=== PATIENT | male | born 1950 | race Caucasian/White ===

== ENCOUNTER → 2017-06-24 | Outpatient (CLI) | payer MEDICARE, OTHER | LOC: GMAJ 10:44 | PROVIDERS: ATTEND Family Medicine | DX: Z12.5 Encounter for screening for malignant neoplasm of prostate (principal) ==

== ENCOUNTER → 2018-01-22 | Outpatient (CLI) | payer MEDICARE, OTHER ==
--- NOTE | 2018-01-22 11:51 | CT ---
EXAM DESCRIPTION: Lumbar Spine: Computed Tomography. CLINICAL HISTORY: INTERVERTEBRAL DISC DISPLACEMENT COMPARISON: None Available. TECHNIQUE: Spiral, axial 2.5 mm scans through the lumbar spine without contrast. Coronal and sagittal 2.0 mm Reconstructions. Total Exam DLP: 594.9 mGy-cm. This exam was performed according to our departmental dose-optimization program which includes automated exposure control, adjustment of the mA and/or kV according to patient size and/or use of iterative reconstruction technique; to reduce radiation dose to as low as reasonably achievable (ALARA). Note: Axial scans are not angled with L3-4 to L5-S1 disc spaces. FINDINGS: L5-S1: Moderate loss of disc space. Anterior disc bulge calcification and ankylosis with the L4-5 disc space. Posterior right paracentral 4 mm disc osteophyte bulge with moderate narrowing of the canal. Spur minimally bulging into the left foramen which is moderately narrowed. Right side spur bulging into the right foramen with moderate to severe narrowing. Bilateral facet arthrosis narrowing the lateral canal. No subarticular recess stenosis. L4-5: Moderate disc space loss and calcification. Anterior bulge of the disc and spurs to the right of midline and ankylosis with the L5-S1 disc space. Trace posterior disc bulge in the midline. Right paracentral disc osteophyte bulge into the foramen and right side of the canal with minimal encroachment on the right subarticular recess. Right facet arthrosis and ligament hypertrophy. Multifactorial right foraminal stenosis. Minimal endplate spur and left facet arthrosis encroaching on the left foramen which is moderately narrowed. Flavum ligaments narrowing the lateral canal. L3-4: Anterior disc bulge and endplate ridging bilaterally. Posterior disc space minimally decreased. Small Schmorl's nodes superior and inferior endplates. Posterior midline broad-based 4 mm disc bulge. Bilateral facet arthrosis and flavum ligament hypertrophy. AP canal diameter 9 mm. Minimal narrowing of the bilateral subarticular recesses. Encroachment of endplate spurs and facet on the right foramen which is minimally stenotic. Moderate to severe narrowing of the left foramen by same mechanisms. L2-3: Minimal anterior disc bulge and endplate ridging. Posterior disc space loss and left side superior inferior endplates Schmorl's nodes. Endplate spurs and facet arthrosis on the left encroaching on the foramen which is stenotic. Similar mechanisms on the right with mild to moderate foraminal narrowing. Mild posterior disc bulge and mild to moderate canal narrowing. L1-2: Minimal anterior bulging and endplate ridging. Posterior disc space narrowing. Schmorl's nodes superior and inferior larger posterior superior endplate. Minimal posterior spurs and disc bulging abutting the thecal sac. No subarticular recess stenosis. Left side facet and endplate causing moderate foraminal narrowing. Same mechanisms resulting in moderate right foraminal narrowing. T12-L1: Minimal anterior disc bulge and endplate ridging. Calcification in the anterior disc. Posterior space loss and minimal posterior bulge with endplate spurs and mild canal narrowing. Bilateral bony mild foraminal narrowing. Bilateral facet arthrosis. Small Schmorl's nodes superior endplate No significant scoliosis. No compression type vertebral body abnormalities. No fractures of the posterior elements. Bilateral renal stones with the largest measuring 4 cm in the lower collecting system of the right kidney. Low-density in the lateral cortex of the lower pole left kidney may represent a cyst. Marked atherosclerotic calcification of the included abdominal aorta including calcification included common iliac arteries and calcification of the ostia of the major branch vessels. IMPRESSION: 1. Posterior right disc spur complex at L5-S1 encroaching on the thecal sac and abutting the descending right S1 nerve. Moderate to severe narrowing right foramen. Correlate for right L5 and S1 radiculopathy. Bilateral facet arthrosis. 2. Right side L4-5 disc osteophyte complex bulge into the canal and foramen. Right foraminal stenosis. Correlate for right L4 radiculopathy. Bilateral facet arthrosis. 3. Multifactorial mild canal stenosis L3-4. Multifactorial right foraminal stenosis and moderate to severe narrowing of the left foramen by same mechanisms. Correlate for bilateral L3 radiculopathy. 4. Posterior minimal L2-L3 disc osteophyte bulge. Mild to moderate canal narrowing. Multifactorial left foraminal stenosis. Correlate for left L2 radiculopathy. 5. Posterior L1-L2 disc osteophyte bulge and bilateral facet arthrosis. Bilateral moderate foraminal narrowing. 6. Bilateral intrarenal calculi largest is 4 mm in the right kidney. Possible cyst lower pole left kidney is significant atherosclerotic calcification of the abdominal aorta, bilateral common iliac arteries, and major branch vessels from the aorta. Electronically signed by: Jeffy Banerjee MD 01/22/2018 11:50 AM CDT
== END | disposition home or self-care (01) ==
LOC: CT 07:49
PROVIDERS: ATTEND Family Medicine
DX: M51.27 Other intervertebral disc displacement, lumbosacral region (principal); J30.89 Other allergic rhinitis

== ENCOUNTER → 2018-08-26 | Outpatient (CLI) | payer MEDICARE, OTHER | LOC: GMAJ 11:12 | PROVIDERS: ATTEND Family Medicine | DX: Z12.5 Encounter for screening for malignant neoplasm of prostate (principal) ==

== ENCOUNTER → 2019-11-28 | Outpatient (CLI) | payer MEDICARE, OTHER | LOC: GMAJ 11:38 | PROVIDERS: ATTEND Family Medicine | DX: R97.21 Rising PSA following treatment for malignant neoplasm of prostate (principal); E11.9 Type 2 diabetes mellitus without complications; I10 Essential (primary) hypertension ==